=== PATIENT | male | born 1955 | race Caucasian/White ===

== ENCOUNTER 2022-10-02 10:24 | Inpatient (IN) | payer OTHER ==
[~2022-10-02] VITALS: Ht 175.3 cm; Wt 74.5 kg
[2022-10-02 12:03] LABS: EOSINOPHILS % (AUTO) 0.7 % (1.0-6.0); LYMPHOCYTES # (AUTO) 2.3 K/uL (1.0-4.8)
[2022-10-02 12:14] LABS: BASOPHILS % (AUTO) 0.4 % (0.0-2.0); HEMATOCRIT 40.9 % (41-53); LYMPHOCYTES % (AUTO) 13.8 % (22.0-44.0); MEAN CORPUSCULAR HEMOGLOBIN 31.8 pg (26.0-34.0); MEAN CORPUSCULAR HGB CONC 34.3 G/dL (31.0-37.0); MEAN CORPUSCULAR VOLUME 93 fL (80-100); MONOCYTES # (AUTO) 1.2 K/uL (0.1-1.0); MONOCYTES % (AUTO) 7.3 % (2.0-9.0); NEUTROPHILS # (AUTO) 13.1 K/uL (1.8-7.7); NEUTROPHILS % (AUTO) 77.8 % (40.0-70.0); PLATELET COUNT (AUTO) 270 K/uL (150-450); RED BLOOD CELL COUNT(AUTO) 4.41 MIL/uL (4.50-5.90); RED CELL DISTRIBUTION WIDTH 13.1 % (11.5-14.5)
[2022-10-02 12:19] LABS: ANION GAP 16 mmol/L (8-16); CALCIUM, TOTAL 9.2 mg/dL (8.8-10.5); CARBON DIOXIDE 19 mmol/L (22-29); CHLORIDE 97 mmol/L (98-107); CREATININE 1.44 mg/dL (0.60-1.30); GLOMERULAR FILTR. RATE CALC 49 mL/min (>60); GLUCOSE,RANDOM 79 mg/dL (70-110); POTASSIUM 4.1 mmol/L (3.5-5.1); SODIUM SERUM 132 mmol/L (136-145); UREA NITROGEN, BLOOD 39 mg/dL (7-18)
[2022-10-02 12:30] LABS: B-TYPE NATRIURETIC PEPTIDE 21 pg/mL (0-100)
[2022-10-02 12:37] LABS: ALANINE AMINOTRANSFERASE 65 U/L (12-78); ALBUMIN 3.2 g/dL (3.4-5.0); ALKALINE PHOSPHATASE 69 U/L (46-116); ASPARTATE AMINOTRANSFERASE 71 U/L (15-37); BILIRUBIN,TOTAL 0.6 mg/dL (0.1-1.0); TOTAL PROTEIN, SERUM 7.3 g/dL (6.4-8.2)
[2022-10-02 12:39] LABS: CREATINE KINASE, TOTAL ONLY 1372 U/L (39-308)
[2022-10-02] MEDS ORDERED: LORazepam 1 MG TABLET PO ONE (12:45)
[2022-10-02] MEDS ORDERED: SODIUM CHLORIDE 0.9% 1,000 ML IV ONE ×3 (13:00→20:00)
[2022-10-02 13:29] LABS: THYROID STIMULATING HORMONE 1.45 uIU/mL (0.36-3.74)
[2022-10-02 13:45] LABS: COVID AG,FIA SOURCE NASAL SWAB
[2022-10-02 14:10] LABS: INFLUENZA TYPE A NEGATIVE FOR TYPE A (NEGATIVE); INFLUENZA TYPE B NEGATIVE FOR TYPE B (NEGATIVE)
[2022-10-02 14:42] LABS: AMPHET/METH SCREEN,URINE NEGATIVE (NEGATIVE); BARBITURATE SCREEN, URINE NEGATIVE (NEGATIVE); BENZODIAZEPINES SCREEN,URINE NEGATIVE (NEGATIVE); CANNABINOID SCREEN,URINE NEGATIVE (NEGATIVE); COCAINE SCREEN,URINE NEGATIVE (NEGATIVE); METHADONE SCREEN, URINE NEGATIVE (NEGATIVE); OPIATE SCREEN,URINE NEGATIVE (NEGATIVE)
[2022-10-02 14:43] LABS: PHENCYCLIDINE SCREEN,URINE NEGATIVE (NEGATIVE)
[2022-10-02 14:49] LABS: APPEARANCE,URINE CLEAR (CLEAR); BILIRUBIN,URINE NEGATIVE (NEGATIVE); GLUCOSE, URINE (UA) NEGATIVE (NEGATIVE); KETONES,URINE =>150 mg/dL (NEGATIVE); LEUKOCYTE ESTERASE ,URINE NEGATIVE (NEGATIVE); NITRATE,URINE NEGATIVE (NEGATIVE); OCCULT BLOOD,URINE TRACE (NEGATIVE); PH,URINE 5.5 (5.0-8.0); PROTEIN,URINE 30-70 mg/dL (NEGATIVE); SPECIFIC GRAVITIY, URINE 1.032 (1.003-1.030)
[2022-10-02 14:50] LABS: BACTERIA,URINE None Seen /HPF (None Seen); RBC,URINE 0-2 /HPF (0-2); WBC,URINE None Seen /HPF (0-5)
[2022-10-02] MEDS ORDERED: 0.9% SODIUM CHLORIDE 10 ML SYRINGE IVP PRN (15:45)
[2022-10-02] MEDS ORDERED: ONDANSETRON HCL 4 MG/2 ML VIAL IVP PRN ×2 (15:45→20:00)
[2022-10-02] MEDS ORDERED: ACETAMINOPHEN 325 MG TABLET PO PRN (15:45)
[2022-10-02 17:35] VITALS: BP 111/47
[2022-10-02 20:00] VITALS: BP 101/61
[2022-10-02] MEDS ORDERED: MORPHINE SULFATE 2 MG/ML SYRINGE IVP PRN (20:00)
[2022-10-02] MEDS ORDERED: BISACODYL 10 MG RECTAL RECTAL SUPPOSITORY PR PRN (20:00)
[2022-10-02] MEDS ORDERED: HYDROCODONE/ACETAMINOPHEN 5-325 MG TABLET PO PRN (20:00)
[2022-10-02] MEDS ORDERED: MAGNESIUM HYDROXIDE SUSPENSION 30 ML UDCUP PO PRN (20:00)
[2022-10-02] MEDS ORDERED: ZOLPIDEM TARTRATE 5 MG TABLET PO PRN (20:00)
[2022-10-02] MEDS: DOCUSATE SODIUM 100 MG CAPSULE PO SCH (20:14)
[2022-10-03] MEDS: HEPARIN SODIUM,PORCINE 5,000 UNITS/ML VIAL SQ SCH ×4 (00:43→23:18)
[2022-10-03 05:00] VITALS: BP 119/62
[2022-10-03 06:16] LABS: BASOPHILS % (AUTO) 0.6 % (0.0-2.0); EOSINOPHILS % (AUTO) 3.4 % (1.0-6.0); HEMATOCRIT 33.3 % (41-53); HEMOGLOBIN 11.7 g/dL (13.5-17.5); LYMPHOCYTES # (AUTO) 2.5 K/uL (1.0-4.8); LYMPHOCYTES % (AUTO) 26.6 % (22.0-44.0); MEAN CORPUSCULAR HEMOGLOBIN 32.9 pg (26.0-34.0); MEAN CORPUSCULAR HGB CONC 35.3 G/dL (31.0-37.0); MEAN CORPUSCULAR VOLUME 93 fL (80-100); MONOCYTES # (AUTO) 1.1 K/uL (0.1-1.0); MONOCYTES % (AUTO) 11.3 % (2.0-9.0); NEUTROPHILS # (AUTO) 5.6 K/uL (1.8-7.7); NEUTROPHILS % (AUTO) 58.1 % (40.0-70.0); PLATELET COUNT (AUTO) 219 K/uL (150-450); RED BLOOD CELL COUNT(AUTO) 3.57 MIL/uL (4.50-5.90); RED CELL DISTRIBUTION WIDTH 13.7 % (11.5-14.5)
[2022-10-03 06:27] LABS: ANION GAP 7 mmol/L (8-16); CARBON DIOXIDE 24 mmol/L (22-29); CHLORIDE 107 mmol/L (98-107); CREATININE 1.18 mg/dL (0.60-1.30); GLUCOSE,RANDOM 100 mg/dL (70-110); POTASSIUM 3.3 mmol/L (3.5-5.1); SODIUM SERUM 138 mmol/L (136-145); UREA NITROGEN, BLOOD 26 mg/dL (7-18)
[2022-10-03 06:31] LABS: GLOMERULAR FILTR. RATE CALC > 60 mL/min (>60)
[2022-10-03] MEDS ORDERED: POTASSIUM CHLORIDE 20 MEQ ER TABLET PO ONE (08:30)
[2022-10-03 08:36] VITALS: BP 118/70
[2022-10-03] MEDS: PANTOPRAZOLE SODIUM 40 MG DR TABLET PO SCH (08:48)
[2022-10-03] MEDS: DOCUSATE SODIUM 100 MG CAPSULE PO SCH ×2 (08:48→20:30)
[2022-10-03 15:31] VITALS: BP 137/77
[2022-10-04] MEDS: LORazepam 2 MG/ML VIAL IM PRN (03:31)
[2022-10-04 04:32] VITALS: BP 133/79
[2022-10-04 07:23] VITALS: BP 129/75
[2022-10-04] MEDS: RisperiDONE 1 MG TABLET PO SCH ×4 (07:54→21:00)
[2022-10-04] MEDS: HEPARIN SODIUM,PORCINE 5,000 UNITS/ML VIAL SQ SCH ×3 (07:54→23:13)
[2022-10-04] MEDS: PANTOPRAZOLE SODIUM 40 MG DR TABLET PO SCH (07:54)
[2022-10-04] MEDS: DOCUSATE SODIUM 100 MG CAPSULE PO SCH ×3 (07:54→20:11)
[2022-10-04 20:10] VITALS: BP 104/54
[2022-10-05] MEDS: LORazepam 2 MG/ML VIAL IM PRN (02:06)
[2022-10-05 06:43] LABS: BASOPHILS % (AUTO) 0.8 % (0.0-2.0); EOSINOPHILS % (AUTO) 2.4 % (1.0-6.0); HEMOGLOBIN 11.7 g/dL (13.5-17.5); LYMPHOCYTES # (AUTO) 3.1 K/uL (1.0-4.8); LYMPHOCYTES % (AUTO) 27.8 % (22.0-44.0); MEAN CORPUSCULAR HEMOGLOBIN 33.1 pg (26.0-34.0); MEAN CORPUSCULAR HGB CONC 35.5 G/dL (31.0-37.0); MEAN CORPUSCULAR VOLUME 93 fL (80-100); NEUTROPHILS # (AUTO) 6.8 K/uL (1.8-7.7); PLATELET COUNT (AUTO) 200 K/uL (150-450); RED BLOOD CELL COUNT(AUTO) 3.54 MIL/uL (4.50-5.90); RED CELL DISTRIBUTION WIDTH 13.4 % (11.5-14.5)
[2022-10-05 07:25] LABS: ANION GAP 5 mmol/L (8-16); CALCIUM, TOTAL 8.5 mg/dL (8.8-10.5); CARBON DIOXIDE 27 mmol/L (22-29); CHLORIDE 106 mmol/L (98-107); CREATINE KINASE, TOTAL ONLY 410 U/L (39-308); CREATININE 0.94 mg/dL (0.60-1.30); GLOMERULAR FILTR. RATE CALC > 60 mL/min (>60); GLUCOSE,RANDOM 111 mg/dL (70-110); SODIUM SERUM 138 mmol/L (136-145); UREA NITROGEN, BLOOD 23 mg/dL (7-18)
[2022-10-05] MEDS: PANTOPRAZOLE SODIUM 40 MG DR TABLET PO SCH (07:51)
[2022-10-05] MEDS: RisperiDONE 1 MG TABLET PO SCH ×2 (07:52→20:58)
[2022-10-05] MEDS: HEPARIN SODIUM,PORCINE 5,000 UNITS/ML VIAL SQ SCH ×2 (07:52→16:21)
[2022-10-05] MEDS: DOCUSATE SODIUM 100 MG CAPSULE PO SCH ×2 (07:52→20:59)
[2022-10-05] MEDS ORDERED: POTASSIUM CHLORIDE 20 MEQ ER TABLET PO ONE (12:15)
[2022-10-05 17:16] VITALS: BP 111/56
[2022-10-05 20:30] VITALS: BP 118/68
[2022-10-06] MEDS: HEPARIN SODIUM,PORCINE 5,000 UNITS/ML VIAL SQ SCH ×3 (00:05→16:01)
[2022-10-06 04:05] VITALS: BP 114/66
[2022-10-06 07:17] VITALS: BP 114/70
[2022-10-06] MEDS: PANTOPRAZOLE SODIUM 40 MG DR TABLET PO SCH (09:06)
[2022-10-06] MEDS: RisperiDONE 1 MG TABLET PO SCH ×2 (09:06→20:00)
[2022-10-06] MEDS: DOCUSATE SODIUM 100 MG CAPSULE PO SCH ×2 (09:06→19:59)
[2022-10-06 11:59] VITALS: BP 101/62
[2022-10-06 15:18] VITALS: BP 130/87
[2022-10-06 19:57] VITALS: BP 113/63
[2022-10-07] MEDS: HEPARIN SODIUM,PORCINE 5,000 UNITS/ML VIAL SQ SCH ×4 (00:08→23:16)
[2022-10-07 07:31] VITALS: BP 118/64
[2022-10-07] MEDS: PANTOPRAZOLE SODIUM 40 MG DR TABLET PO SCH (08:16)
[2022-10-07] MEDS: RisperiDONE 1 MG TABLET PO SCH ×2 (08:16→20:12)
[2022-10-07] MEDS: DOCUSATE SODIUM 100 MG CAPSULE PO SCH ×2 (08:16→20:12)
[2022-10-07 15:24] VITALS: BP 143/67
[2022-10-07 20:40] VITALS: BP 113/73
[2022-10-08 04:22] VITALS: BP 110/64
[2022-10-08] MEDS: ACETAMINOPHEN 325 MG TABLET PO PRN (04:46)
[2022-10-08 07:18] VITALS: BP 100/65
[2022-10-08] MEDS: PANTOPRAZOLE SODIUM 40 MG DR TABLET PO SCH (08:07)
[2022-10-08] MEDS: DOCUSATE SODIUM 100 MG CAPSULE PO SCH ×2 (08:07→21:57)
[2022-10-08] MEDS: RisperiDONE 1 MG TABLET PO SCH ×2 (08:07→21:57)
[2022-10-08] MEDS: HEPARIN SODIUM,PORCINE 5,000 UNITS/ML VIAL SQ SCH ×3 (08:07→22:57)
[2022-10-08 10:57] LABS: COVID AG,FIA SOURCE NASAL SWAB
[2022-10-08 15:29] VITALS: BP 114/68
[2022-10-08 19:37] VITALS: BP 106/60
[2022-10-09 05:05] VITALS: BP 137/59
[2022-10-09] MEDS: DOCUSATE SODIUM 100 MG CAPSULE PO SCH ×2 (08:00→20:19)
[2022-10-09] MEDS: RisperiDONE 1 MG TABLET PO SCH ×2 (08:01→20:19)
[2022-10-09] MEDS: PANTOPRAZOLE SODIUM 40 MG DR TABLET PO SCH (08:01)
[2022-10-09] MEDS: HEPARIN SODIUM,PORCINE 5,000 UNITS/ML VIAL SQ SCH ×2 (08:01→16:00)
[2022-10-09 08:06] VITALS: BP 105/64
[2022-10-09 16:00] VITALS: BP 117/66
[2022-10-09 20:00] VITALS: BP 125/77
[2022-10-10] MEDS: HEPARIN SODIUM,PORCINE 5,000 UNITS/ML VIAL SQ SCH ×3 (00:09→16:37)
[2022-10-10 05:31] VITALS: BP 112/72
[2022-10-10] MEDS: ACETAMINOPHEN 325 MG TABLET PO PRN (05:37)
[2022-10-10 07:35] VITALS: BP 118/74
[2022-10-10] MEDS: RisperiDONE 1 MG TABLET PO SCH ×2 (08:02→20:09)
[2022-10-10] MEDS: DOCUSATE SODIUM 100 MG CAPSULE PO SCH ×2 (08:02→20:09)
[2022-10-10] MEDS: PANTOPRAZOLE SODIUM 40 MG DR TABLET PO SCH (08:03)
[2022-10-10 15:26] VITALS: BP 124/78
[2022-10-10 19:45] VITALS: BP 113/59
[2022-10-11] MEDS: HEPARIN SODIUM,PORCINE 5,000 UNITS/ML VIAL SQ SCH ×4 (00:02→23:43)
[2022-10-11 05:10] VITALS: BP 105/56
[2022-10-11 06:31] LABS: BASOPHILS % (AUTO) 0.4 % (0.0-2.0); EOSINOPHILS % (AUTO) 0.2 % (1.0-6.0); HEMATOCRIT 33.6 % (41-53); HEMOGLOBIN 11.8 g/dL (13.5-17.5); LYMPHOCYTES # (AUTO) 2.1 K/uL (1.0-4.8); LYMPHOCYTES % (AUTO) 22.4 % (22.0-44.0); MEAN CORPUSCULAR HEMOGLOBIN 32.8 pg (26.0-34.0); MEAN CORPUSCULAR HGB CONC 35.1 G/dL (31.0-37.0); MEAN CORPUSCULAR VOLUME 93 fL (80-100); MONOCYTES % (AUTO) 11.1 % (2.0-9.0); NEUTROPHILS # (AUTO) 6.2 K/uL (1.8-7.7); NEUTROPHILS % (AUTO) 65.9 % (40.0-70.0); PLATELET COUNT (AUTO) 182 K/uL (150-450); RED CELL DISTRIBUTION WIDTH 13.8 % (11.5-14.5)
[2022-10-11 08:00] VITALS: BP 106/59
[2022-10-11] MEDS: RisperiDONE 1 MG TABLET PO SCH ×2 (08:25→20:32)
[2022-10-11] MEDS: DOCUSATE SODIUM 100 MG CAPSULE PO SCH ×2 (08:25→20:32)
[2022-10-11] MEDS: PANTOPRAZOLE SODIUM 40 MG DR TABLET PO SCH (08:25)
[2022-10-11 11:34] LABS: ALBUMIN 2.4 g/dL (3.4-5.0); BILIRUBIN,TOTAL 0.3 mg/dL (0.1-1.0); CALCIUM, TOTAL 8.3 mg/dL (8.8-10.5); CREATININE 1.33 mg/dL (0.60-1.30); POTASSIUM 3.6 mmol/L (3.5-5.1); TOTAL PROTEIN, SERUM 6.4 g/dL (6.4-8.2)
[2022-10-11] MEDS ORDERED: SODIUM CHLORIDE 0.9% 1,000 ML IV ONE (14:15)
[2022-10-11 15:33] VITALS: BP 105/55
[2022-10-11 20:27] VITALS: BP 120/75
[2022-10-11] MEDS: ACETAMINOPHEN 325 MG TABLET PO PRN (20:32)
[2022-10-12 05:56] VITALS: BP 98/57
[2022-10-12 07:32] LABS: ANION GAP 6 mmol/L (8-16); CALCIUM, TOTAL 8.1 mg/dL (8.8-10.5); CARBON DIOXIDE 29 mmol/L (22-29); CHLORIDE 102 mmol/L (98-107); GLUCOSE,RANDOM 106 mg/dL (70-110); UREA NITROGEN, BLOOD 19 mg/dL (7-18)
[2022-10-12 07:44] LABS: GLOMERULAR FILTR. RATE CALC > 60 mL/min (>60); SODIUM SERUM 137 mmol/L (136-145)
[2022-10-12] MEDS: PANTOPRAZOLE SODIUM 40 MG DR TABLET PO SCH (08:21)
[2022-10-12] MEDS: HEPARIN SODIUM,PORCINE 5,000 UNITS/ML VIAL SQ SCH ×3 (08:21→23:57)
[2022-10-12] MEDS: DOCUSATE SODIUM 100 MG CAPSULE PO SCH ×2 (08:21→20:13)
[2022-10-12] MEDS: RisperiDONE 1 MG TABLET PO SCH ×2 (08:21→20:13)
[2022-10-12 08:52] VITALS: BP 103/64
[2022-10-12 16:16] VITALS: BP 124/75
[2022-10-12 20:18] VITALS: BP 103/61
[2022-10-12] MEDS: ACETAMINOPHEN 325 MG TABLET PO PRN (20:27)
[2022-10-13 05:08] VITALS: BP 117/74
[2022-10-13 07:32] VITALS: BP 118/76
[2022-10-13] MEDS: RisperiDONE 1 MG TABLET PO SCH ×2 (08:49→20:01)
[2022-10-13] MEDS: DOCUSATE SODIUM 100 MG CAPSULE PO SCH ×2 (08:49→20:02)
[2022-10-13] MEDS: PANTOPRAZOLE SODIUM 40 MG DR TABLET PO SCH (08:49)
[2022-10-13] MEDS: HEPARIN SODIUM,PORCINE 5,000 UNITS/ML VIAL SQ SCH ×2 (08:50→15:34)
[2022-10-13 13:10] LABS: COVID AG,FIA SOURCE NASAL SWAB
[2022-10-13 15:06] VITALS: BP 124/84
[2022-10-13 20:34] VITALS: BP 111/72
[2022-10-14] MEDS: HEPARIN SODIUM,PORCINE 5,000 UNITS/ML VIAL SQ SCH ×4 (00:05→23:07)
[2022-10-14 04:55] VITALS: BP 110/66
[2022-10-14 07:30] VITALS: BP 116/68
[2022-10-14] MEDS: RisperiDONE 1 MG TABLET PO SCH ×2 (09:00→20:27)
[2022-10-14] MEDS: PANTOPRAZOLE SODIUM 40 MG DR TABLET PO SCH (09:00)
[2022-10-14] MEDS: DOCUSATE SODIUM 100 MG CAPSULE PO SCH ×2 (09:00→20:27)
[2022-10-14 15:13] VITALS: BP 106/60
[2022-10-14 20:12] VITALS: BP 109/66
[2022-10-15 04:29] VITALS: BP 102/65
[2022-10-15 07:17] VITALS: BP 103/65
[2022-10-15] MEDS: PANTOPRAZOLE SODIUM 40 MG DR TABLET PO SCH (08:18)
[2022-10-15] MEDS: RisperiDONE 1 MG TABLET PO SCH ×2 (08:18→20:42)
[2022-10-15] MEDS: HEPARIN SODIUM,PORCINE 5,000 UNITS/ML VIAL SQ SCH ×2 (08:19→17:21)
[2022-10-15] MEDS: DOCUSATE SODIUM 100 MG CAPSULE PO SCH ×2 (08:19→20:42)
[2022-10-15 11:16] LABS: COVID AG,FIA SOURCE NASAL SWAB
[2022-10-15 15:05] VITALS: BP 110/73
[2022-10-15 19:44] VITALS: BP 118/67
[2022-10-16] MEDS: HEPARIN SODIUM,PORCINE 5,000 UNITS/ML VIAL SQ SCH ×3 (00:08→17:30)
[2022-10-16 00:13] VITALS: BP 101/69
[2022-10-16 04:15] VITALS: BP 126/72
[2022-10-16 08:09] VITALS: BP 128/72
[2022-10-16] MEDS: PANTOPRAZOLE SODIUM 40 MG DR TABLET PO SCH (08:17)
[2022-10-16] MEDS: RisperiDONE 1 MG TABLET PO SCH ×2 (08:17→20:28)
[2022-10-16] MEDS: DOCUSATE SODIUM 100 MG CAPSULE PO SCH ×2 (09:08→20:28)
[2022-10-16 15:28] VITALS: BP 115/77
[2022-10-16 20:16] VITALS: BP 113/65
[2022-10-17] MEDS: HEPARIN SODIUM,PORCINE 5,000 UNITS/ML VIAL SQ SCH ×4 (00:22→23:01)
[2022-10-17 04:32] VITALS: BP 122/81
[2022-10-17 07:57] VITALS: BP 124/78
[2022-10-17] MEDS: RisperiDONE 1 MG TABLET PO SCH ×2 (08:23→20:03)
[2022-10-17] MEDS: DOCUSATE SODIUM 100 MG CAPSULE PO SCH ×2 (08:23→20:03)
[2022-10-17] MEDS: PANTOPRAZOLE SODIUM 40 MG DR TABLET PO SCH (08:23)
[2022-10-17 15:22] VITALS: BP 118/68
[2022-10-17 16:17] LABS: COVID AG,FIA SOURCE NASAL SWAB
[2022-10-17 19:32] VITALS: BP 132/73
[2022-10-18 04:22] VITALS: BP 125/73
[2022-10-18] MEDS ORDERED: RISP0.5T39 PO (07:27)
[2022-10-18] MEDS ORDERED: ASPI-1450 PO (07:27)
[2022-10-18] MEDS ORDERED: RISP1TAB48 PO (07:32)
[2022-10-18] MEDS: PANTOPRAZOLE SODIUM 40 MG DR TABLET PO SCH (07:55)
[2022-10-18] MEDS: RisperiDONE 1 MG TABLET PO SCH (07:55)
[2022-10-18] MEDS: DOCUSATE SODIUM 100 MG CAPSULE PO SCH (07:55)
[2022-10-18] MEDS: HEPARIN SODIUM,PORCINE 5,000 UNITS/ML VIAL SQ SCH (07:56)
[2022-10-18 08:01] VITALS: BP 132/88
== END 2022-10-18 14:30 | disposition home or self-care (01) | DRG 91 ==
LOC: EMS 10:33 → 6S 16:53 → 6N 10-08 12:12 → 6S 10-17 17:39
PROVIDERS: ADMIT Internal Medicine; ATTEND Internal Medicine
DX: G92.8 Other toxic encephalopathy (principal); N17.0 Acute kidney failure with tubular necrosis; R65.11 Systemic inflammatory response syndrome (SIRS) of non-infectious origin with acute organ dysfunction; U07.1 COVID-19; M62.82 Rhabdomyolysis; D64.9 Anemia, unspecified; F20.9 Schizophrenia, unspecified; E87.6 Hypokalemia; Z20.822 Contact with and (suspected) exposure to COVID-19; Z60.2 Problems related to living alone; Z91.14 Patient's other noncompliance with medication regimen; Z86.73 Personal history of transient ischemic attack (TIA), and cerebral infarction without residual deficits; Z87.891 Personal history of nicotine dependence; Z79.899 Other long term (current) drug therapy
CPT/HCPCS: 70450; 71045; 80048; 80053; 81001; 82550; 83880; 84132; 84443; 84484; 85025; 87804; 93005; 99285; G0480; J1644; J2060; J7030; 36415-L1; 36415-TC

== ENCOUNTER 2023-05-19 19:33 | Inpatient (IN) | payer MEDICARE, MEDICAID ==
[~2023-05-19] VITALS: Ht 175.3 cm; Wt 71.4 kg
[~2023-05-19 19:33] MED LIST: ASPI-1450 PO; RISP1TAB48 PO
[2023-05-19] MEDS ORDERED: GuaiFENesin/D-METHORPHAN [SUGAR-FREE] 200-20MG/10 ML SYRUP UDCUP PO PRN (21:15)
[2023-05-19] MEDS ORDERED: TUBERCULIN, PURIFIED PROTEIN DERIVATIVE 5 TU/0.1 ML SYRINGE ID ONE (21:15)
[2023-05-19] MEDS ORDERED: MAG HYDROX/AL HYDROX/SIMETH ES 30 ML SUSPENSION UDCUP PO PRN (21:15)
[2023-05-19] MEDS ORDERED: HydrOXYzine PAMOATE 50 MG CAPSULE PO PRN (21:15)
[2023-05-19] MEDS ORDERED: LOPERAMIDE HCL 2 MG CAPSULE PO PRN (21:15)
[2023-05-19] MEDS ORDERED: ACETAMINOPHEN 325 MG TABLET PO PRN (21:15)
[2023-05-19] MEDS ORDERED: OLANZapine 5 MG RAPDIS TABLET PO PRN (21:15)
[2023-05-19] MEDS ORDERED: MAGNESIUM HYDROXIDE SUSPENSION 30 ML UDCUP PO PRN (21:15)
[2023-05-19] MEDS ORDERED: LORazepam 2 MG TABLET PO PRN (21:15)
[2023-05-19] MEDS ORDERED: PROMETHAZINE HCL 25 MG TABLET PO PRN (21:15)
[2023-05-19 23:10] LABS: EOSINOPHILS % (AUTO) 2.1 % (1.0-6.0); HEMATOCRIT 29.8 % (41-53); HEMOGLOBIN 9.6 g/dL (13.5-17.5); LYMPHOCYTES # (AUTO) 2.6 K/uL (1.0-4.8); LYMPHOCYTES % (AUTO) 21.8 % (22.0-44.0); MEAN CORPUSCULAR HEMOGLOBIN 32.4 pg (26.0-34.0); MEAN CORPUSCULAR HGB CONC 32.3 G/dL (31.0-37.0); MEAN CORPUSCULAR VOLUME 100 fL (80-100); MONOCYTES # (AUTO) 1.2 K/uL (0.1-1.0); MONOCYTES % (AUTO) 10.3 % (2.0-9.0); NEUTROPHILS # (AUTO) 7.6 K/uL (1.8-7.7); NEUTROPHILS % (AUTO) 64.8 % (40.0-70.0); PLATELET COUNT (AUTO) 305 K/uL (150-450); RED BLOOD CELL COUNT(AUTO) 2.97 MIL/uL (4.50-5.90); RED CELL DISTRIBUTION WIDTH 14.4 % (11.5-14.5); WHITE BLOOD COUNT (AUTO) 11.8 K/uL (4.5-11.0)
[2023-05-19 23:18] LABS: ANION GAP 9 mmol/L (8-16); CALCIUM, TOTAL 8.5 mg/dL (8.8-10.5); CARBON DIOXIDE 30 mmol/L (22-29); CHLORIDE 104 mmol/L (98-107); CREATININE 0.86 mg/dL (0.60-1.30); GLOMERULAR FILTR. RATE CALC > 60 mL/min (>60); GLUCOSE,RANDOM 105 mg/dL (70-110); POTASSIUM 3.8 mmol/L (3.5-5.1); SODIUM SERUM 143 mmol/L (136-145); UREA NITROGEN, BLOOD 20 mg/dL (7-18)
[2023-05-19 23:25] LABS: ALANINE AMINOTRANSFERASE 13 U/L (12-78); ALBUMIN 2.7 g/dL (3.4-5.0); ALKALINE PHOSPHATASE 82 U/L (46-116); ASPARTATE AMINOTRANSFERASE 16 U/L (15-37); BILIRUBIN,TOTAL 0.2 mg/dL (0.1-1.0); TOTAL PROTEIN, SERUM 6.4 g/dL (6.4-8.2)
[2023-05-19 23:39] LABS: ALCOHOL, BLOOD (SERUM) < 3 mg/dL (0-10)
[2023-05-19] MEDS ORDERED: CEPHALEXIN MONOHYDRATE 500 MG CAPSULE PO ONE (23:45)
[2023-05-19] MEDS ORDERED: SULFAMETHOX/TRIMETH DS 800-160 MG/TABLET PO ONE (23:45)
[2023-05-20] LABS: COVID AG,FIA SOURCE NASOPHARYNGEAL
[2023-05-20 00:26] LABS: SARS-COV2 (COVID) ANTIGEN,FIA Negative (Negative)
[2023-05-20 07:31] LABS: BASOPHILS % (AUTO) 1.1 % (0.0-2.0); EOSINOPHILS % (AUTO) 2.5 % (1.0-6.0); HEMATOCRIT 29.3 % (41-53); HEMOGLOBIN 9.9 g/dL (13.5-17.5); HEMOGLOBIN A1C 4.5 % (3.8-5.6); LYMPHOCYTES # (AUTO) 2.5 K/uL (1.0-4.8); LYMPHOCYTES % (AUTO) 23.8 % (22.0-44.0); MEAN CORPUSCULAR HEMOGLOBIN 33.3 pg (26.0-34.0); MEAN CORPUSCULAR HGB CONC 33.6 G/dL (31.0-37.0); MEAN CORPUSCULAR VOLUME 99 fL (80-100); MONOCYTES # (AUTO) 1.1 K/uL (0.1-1.0); MONOCYTES % (AUTO) 10.1 % (2.0-9.0); NEUTROPHILS # (AUTO) 6.7 K/uL (1.8-7.7); NEUTROPHILS % (AUTO) 62.5 % (40.0-70.0); PLATELET COUNT (AUTO) 289 K/uL (150-450); RED BLOOD CELL COUNT(AUTO) 2.96 MIL/uL (4.50-5.90); WHITE BLOOD COUNT (AUTO) 10.7 K/uL (4.5-11.0)
[2023-05-20 07:42] LABS: ALBUMIN 2.6 g/dL (3.4-5.0); ALKALINE PHOSPHATASE 74 U/L (46-116); ANION GAP 6 mmol/L (8-16); ASPARTATE AMINOTRANSFERASE 19 U/L (15-37); BILIRUBIN,TOTAL 0.3 mg/dL (0.1-1.0); CALCIUM, TOTAL 8.5 mg/dL (8.8-10.5); CARBON DIOXIDE 29 mmol/L (22-29); CHLORIDE 104 mmol/L (98-107); CHOL/HDL RATIO 2.7 (4.2-7.3); CHOLESTEROL 161 mg/dL (131-200); CREATININE 0.85 mg/dL (0.60-1.30); GLOMERULAR FILTR. RATE CALC > 60 mL/min (>60); GLUCOSE,RANDOM 93 mg/dL (70-110); HDL CHOLESTEROL 59 mg/dL (40-60); LDL CHOL (CALC.) 88 mg/dL (0-130); POTASSIUM 3.9 mmol/L (3.5-5.1); SODIUM SERUM 139 mmol/L (136-145); TOTAL PROTEIN, SERUM 6.4 g/dL (6.4-8.2); TRIGLYCERIDES 72 mg/dL (15-150); UREA NITROGEN, BLOOD 14 mg/dL (7-18)
[2023-05-20 07:52] LABS: ALANINE AMINOTRANSFERASE 13 U/L (12-78)
[2023-05-20] MEDS: MULTIVITAMINS WITH MINERALS, THERAPEUTIC TABLET PO SCH (08:37)
[2023-05-20] MEDS: THIAMINE 100 MG TABLET PO SCH ×2 (08:37→22:00)
[2023-05-20] MEDS: OMEGA-3/DHA/EPA/FISH OIL 1,000 MG CAPSULE PO SCH (11:28)
[2023-05-20] MEDS: FOLIC ACID 1 MG TABLET PO SCH (11:28)
[2023-05-20 14:29] LABS: PH,URINE DRUG SCREEN 7.5 (5.0-8.0)
[2023-05-20 14:36] LABS: ALCOHOL, URINE DRUG SCREEN NEGATIVE (NEGATIVE); AMPHET/METH SCREEN,URINE NEGATIVE (NEGATIVE); BARBITURATE SCREEN, URINE NEGATIVE (NEGATIVE); BENZODIAZEPINES SCREEN,URINE POSITIVE (NEGATIVE); CANNABINOID SCREEN,URINE NEGATIVE (NEGATIVE); COCAINE SCREEN,URINE NEGATIVE (NEGATIVE); METHADONE SCREEN, URINE NEGATIVE (NEGATIVE); OPIATE SCREEN,URINE NEGATIVE (NEGATIVE); PHENCYCLIDINE SCREEN,URINE NEGATIVE (NEGATIVE)
[2023-05-20] MEDS: MELATONIN 5 MG TABLET PO SCH (22:00)
[2023-05-20] MEDS: OLANZapine 5 MG RAPDIS TABLET PO SCH (22:00)
[2023-05-21] MEDS: THIAMINE 100 MG TABLET PO SCH (09:00)
[2023-05-21] MEDS: MULTIVITAMINS WITH MINERALS, THERAPEUTIC TABLET PO SCH (18:45)
[2023-05-21] MEDS: OMEGA-3/DHA/EPA/FISH OIL 1,000 MG CAPSULE PO SCH (19:34)
[2023-05-21] MEDS: FOLIC ACID 1 MG TABLET PO SCH (19:34)
[2023-05-21] MEDS: MELATONIN 5 MG TABLET PO SCH (21:00)
[2023-05-21] MEDS: OLANZapine 5 MG RAPDIS TABLET PO SCH (21:00)
[2023-05-22] MEDS: THIAMINE 100 MG TABLET PO SCH ×2 (09:00→16:42)
[2023-05-22] MEDS: MULTIVITAMINS WITH MINERALS, THERAPEUTIC TABLET PO SCH (09:00)
[2023-05-22] MEDS: OMEGA-3/DHA/EPA/FISH OIL 1,000 MG CAPSULE PO SCH (09:00)
[2023-05-22] MEDS: FOLIC ACID 1 MG TABLET PO SCH (09:00)
[2023-05-22 16:49] VITALS: BP 150/70; PULSE 98; RESP 18; TEMP 98; O2SAT 99
[2023-05-22 20:30] VITALS: BP 110/58; PULSE 79; RESP 18; TEMP 98.3
[2023-05-22] MEDS: OLANZapine 5 MG RAPDIS TABLET PO SCH (21:16)
[2023-05-22] MEDS: MELATONIN 5 MG TABLET PO SCH (21:16)
[2023-05-22] MEDS: ZOLPIDEM TARTRATE 10 MG TABLET PO PRN (21:45)
[2023-05-23 08:40] VITALS: BP 114/69; PULSE 70; RESP 18; TEMP 98.1
[2023-05-23] MEDS: MULTIVITAMINS WITH MINERALS, THERAPEUTIC TABLET PO SCH (08:56)
[2023-05-23] MEDS: THIAMINE 100 MG TABLET PO SCH ×2 (08:56→17:15)
[2023-05-23] MEDS: OMEGA-3/DHA/EPA/FISH OIL 1,000 MG CAPSULE PO SCH (08:56)
[2023-05-23] MEDS: FOLIC ACID 1 MG TABLET PO SCH (08:56)
[2023-05-23 20:19] VITALS: BP 116/70; PULSE 78; RESP 20; TEMP 98.2
[2023-05-23] MEDS: MELATONIN 5 MG TABLET PO SCH (20:33)
[2023-05-23] MEDS: DIVALPROEX SODIUM 500 MG ER TABLET PO SCH (20:34)
[2023-05-23] MEDS: OLANZapine 5 MG RAPDIS TABLET PO SCH (20:35)
[2023-05-24 08:47] VITALS: BP 116/63; PULSE 69; RESP 18; TEMP 97.3
[2023-05-24] MEDS: OMEGA-3/DHA/EPA/FISH OIL 1,000 MG CAPSULE PO SCH (09:11)
[2023-05-24] MEDS: THIAMINE 100 MG TABLET PO SCH ×2 (09:12→18:22)
[2023-05-24] MEDS: FOLIC ACID 1 MG TABLET PO SCH (09:12)
[2023-05-24] MEDS: MULTIVITAMINS WITH MINERALS, THERAPEUTIC TABLET PO SCH (09:12)
[2023-05-24 20:17] VITALS: BP 110/63; PULSE 80; RESP 18; TEMP 98.6
[2023-05-24] MEDS: MELATONIN 5 MG TABLET PO SCH (20:44)
[2023-05-24] MEDS: DIVALPROEX SODIUM 500 MG ER TABLET PO SCH (20:44)
[2023-05-24] MEDS: OLANZapine 5 MG RAPDIS TABLET PO SCH (20:45)
[2023-05-25 08:30] VITALS: BP 137/68; PULSE 71; RESP 17; TEMP 98.1
[2023-05-25] MEDS: THIAMINE 100 MG TABLET PO SCH ×2 (09:18→17:31)
[2023-05-25] MEDS: FOLIC ACID 1 MG TABLET PO SCH (09:18)
[2023-05-25] MEDS: OMEGA-3/DHA/EPA/FISH OIL 1,000 MG CAPSULE PO SCH (09:18)
[2023-05-25] MEDS: MULTIVITAMINS WITH MINERALS, THERAPEUTIC TABLET PO SCH (09:19)
[2023-05-25 20:24] VITALS: BP 127/66; PULSE 73; RESP 19; TEMP 98.4
[2023-05-25] MEDS: MELATONIN 5 MG TABLET PO SCH (20:26)
[2023-05-25] MEDS: DIVALPROEX SODIUM 500 MG ER TABLET PO SCH (20:26)
[2023-05-25] MEDS: OLANZapine 5 MG RAPDIS TABLET PO SCH (20:27)
[2023-05-26] MEDS: MULTIVITAMINS WITH MINERALS, THERAPEUTIC TABLET PO SCH (07:51)
[2023-05-26] MEDS: THIAMINE 100 MG TABLET PO SCH ×2 (07:51→17:53)
[2023-05-26] MEDS: FOLIC ACID 1 MG TABLET PO SCH (07:51)
[2023-05-26] MEDS: OMEGA-3/DHA/EPA/FISH OIL 1,000 MG CAPSULE PO SCH (07:51)
[2023-05-26 08:39] VITALS: BP 139/75; PULSE 79; RESP 18; TEMP 97.6
[2023-05-26] MEDS ORDERED: PROPOFOL 1000 MG/ISO-OSM 100 ML ONE (19:57)
[2023-05-26 20:00] VITALS: BP 127/66; PULSE 77; RESP 19; TEMP 98.1
[2023-05-26] MEDS: MELATONIN 5 MG TABLET PO SCH (21:05)
[2023-05-26] MEDS: DIVALPROEX SODIUM 500 MG ER TABLET PO SCH (21:05)
[2023-05-26] MEDS: OLANZapine 10 MG RAPDIS TABLET PO SCH (21:06)
[2023-05-27 09:16] VITALS: BP 131/72; PULSE 65; RESP 18; TEMP 98.1
[2023-05-27] MEDS: THIAMINE 100 MG TABLET PO SCH ×2 (09:51→17:47)
[2023-05-27] MEDS: FOLIC ACID 1 MG TABLET PO SCH (09:51)
[2023-05-27] MEDS: MULTIVITAMINS WITH MINERALS, THERAPEUTIC TABLET PO SCH (09:52)
[2023-05-27] MEDS: OMEGA-3/DHA/EPA/FISH OIL 1,000 MG CAPSULE PO SCH (10:03)
[2023-05-27 20:51] VITALS: BP 128/71; PULSE 72; RESP 18; TEMP 97.1
[2023-05-27] MEDS: OLANZapine 10 MG RAPDIS TABLET PO SCH (21:18)
[2023-05-27] MEDS: DIVALPROEX SODIUM 500 MG ER TABLET PO SCH (21:18)
[2023-05-27] MEDS: MELATONIN 5 MG TABLET PO SCH (21:18)
[2023-05-28] MEDS: OMEGA-3/DHA/EPA/FISH OIL 1,000 MG CAPSULE PO SCH (08:25)
[2023-05-28] MEDS: BuPROPion HCL XL 150 MG ER TABLET PO SCH (08:25)
[2023-05-28] MEDS: FOLIC ACID 1 MG TABLET PO SCH (08:25)
[2023-05-28] MEDS: THIAMINE 100 MG TABLET PO SCH ×2 (08:25→16:55)
[2023-05-28] MEDS: MULTIVITAMINS WITH MINERALS, THERAPEUTIC TABLET PO SCH (08:26)
[2023-05-28 09:39] VITALS: BP 112/69; PULSE 68; RESP 18; TEMP 97
[2023-05-28 20:30] VITALS: BP 120/70; PULSE 80; RESP 17; TEMP 98.6
[2023-05-28] MEDS: OLANZapine 10 MG RAPDIS TABLET PO SCH (21:20)
[2023-05-28] MEDS: DIVALPROEX SODIUM 500 MG ER TABLET PO SCH (21:20)
[2023-05-28] MEDS: MELATONIN 5 MG TABLET PO SCH (21:20)
[2023-05-28] MEDS: ZOLPIDEM TARTRATE 10 MG TABLET PO PRN (21:50)
[2023-05-29] MEDS: THIAMINE 100 MG TABLET PO SCH (08:29)
[2023-05-29] MEDS: OMEGA-3/DHA/EPA/FISH OIL 1,000 MG CAPSULE PO SCH (08:29)
[2023-05-29] MEDS: BuPROPion HCL XL 150 MG ER TABLET PO SCH (08:29)
[2023-05-29] MEDS: MULTIVITAMINS WITH MINERALS, THERAPEUTIC TABLET PO SCH (08:29)
[2023-05-29] MEDS: FOLIC ACID 1 MG TABLET PO SCH (08:29)
[2023-05-29 08:46] VITALS: BP 113/65; PULSE 73; RESP 16; TEMP 97.8
[2023-05-29 08:54] VITALS: BP 113/65; PULSE 73; RESP 16; TEMP 97.8
[2023-05-29] MEDS: DIVALPROEX SODIUM 500 MG ER TABLET PO SCH (20:05)
[2023-05-29] MEDS: MELATONIN 5 MG TABLET PO SCH (20:05)
[2023-05-29] MEDS: OLANZapine 10 MG RAPDIS TABLET PO SCH (20:05)
[2023-05-29 20:20] VITALS: BP 123/74; PULSE 64; RESP 18; TEMP 98.4
[2023-05-29] MEDS: ZOLPIDEM TARTRATE 10 MG TABLET PO PRN (21:14)
[2023-05-30] MEDS: OMEGA-3/DHA/EPA/FISH OIL 1,000 MG CAPSULE PO SCH (08:45)
[2023-05-30] MEDS: MULTIVITAMINS WITH MINERALS, THERAPEUTIC TABLET PO SCH (08:46)
[2023-05-30] MEDS: BuPROPion HCL XL 150 MG ER TABLET PO SCH (08:47)
[2023-05-30 10:23] VITALS: BP 118/71; PULSE 64; RESP 18; TEMP 98.3
[2023-05-30 20:20] VITALS: BP 127/84; PULSE 90; RESP 18; TEMP 97.8
[2023-05-30] MEDS: MELATONIN 5 MG TABLET PO SCH (20:49)
[2023-05-30] MEDS: DIVALPROEX SODIUM 500 MG ER TABLET PO SCH (20:49)
[2023-05-30] MEDS: OLANZapine 10 MG RAPDIS TABLET PO SCH (20:49)
[2023-05-31] MEDS: MULTIVITAMINS WITH MINERALS, THERAPEUTIC TABLET PO SCH (08:30)
[2023-05-31] MEDS: OMEGA-3/DHA/EPA/FISH OIL 1,000 MG CAPSULE PO SCH (08:30)
[2023-05-31] MEDS: BuPROPion HCL XL 150 MG ER TABLET PO SCH (08:30)
[2023-05-31 09:04] VITALS: BP 101/65; PULSE 70; RESP 18; TEMP 97.8
[2023-05-31 20:14] VITALS: BP 117/68; PULSE 75; RESP 18; TEMP 98.4
[2023-05-31] MEDS: MELATONIN 5 MG TABLET PO SCH (21:28)
[2023-05-31] MEDS: DIVALPROEX SODIUM 500 MG ER TABLET PO SCH (21:28)
[2023-05-31] MEDS: OLANZapine 10 MG RAPDIS TABLET PO SCH (21:29)
[2023-06-01] MEDS: OMEGA-3/DHA/EPA/FISH OIL 1,000 MG CAPSULE PO SCH (08:22)
[2023-06-01] MEDS: MULTIVITAMINS WITH MINERALS, THERAPEUTIC TABLET PO SCH (08:22)
[2023-06-01] MEDS: BuPROPion HCL XL 150 MG ER TABLET PO SCH (08:22)
[2023-06-01 09:13] VITALS: BP 125/68; PULSE 73; RESP 17; TEMP 97.5
[2023-06-01 20:21] VITALS: BP 112/67; PULSE 82; RESP 18; TEMP 99.1
[2023-06-01] MEDS: DIVALPROEX SODIUM 500 MG ER TABLET PO SCH (20:56)
[2023-06-01] MEDS: OLANZapine 10 MG RAPDIS TABLET PO SCH (20:56)
[2023-06-01] MEDS: MELATONIN 5 MG TABLET PO SCH (20:56)
[2023-06-02 08:40] VITALS: BP 127/70; PULSE 69; RESP 17; TEMP 97.9
[2023-06-02] MEDS: BuPROPion HCL XL 150 MG ER TABLET PO SCH (09:59)
[2023-06-02] MEDS: MULTIVITAMINS WITH MINERALS, THERAPEUTIC TABLET PO SCH (09:59)
[2023-06-02] MEDS: OMEGA-3/DHA/EPA/FISH OIL 1,000 MG CAPSULE PO SCH (09:59)
[2023-06-02] MEDS: MELATONIN 5 MG TABLET PO SCH (20:55)
[2023-06-02] MEDS: DIVALPROEX SODIUM 500 MG ER TABLET PO SCH (20:55)
[2023-06-02] MEDS: OLANZapine 10 MG RAPDIS TABLET PO SCH (20:55)
[2023-06-02 21:33] VITALS: BP 102/60; PULSE 75; RESP 17; TEMP 98.4
[2023-06-03] MEDS: OMEGA-3/DHA/EPA/FISH OIL 1,000 MG CAPSULE PO SCH (08:23)
[2023-06-03] MEDS: MULTIVITAMINS WITH MINERALS, THERAPEUTIC TABLET PO SCH (08:24)
[2023-06-03] MEDS: BuPROPion HCL XL 150 MG ER TABLET PO SCH (08:24)
[2023-06-03 08:35] VITALS: BP 107/56; PULSE 66; RESP 17; TEMP 97.2
[2023-06-03] MEDS: DIVALPROEX SODIUM 500 MG ER TABLET PO SCH (21:14)
[2023-06-03] MEDS: MELATONIN 5 MG TABLET PO SCH (21:14)
[2023-06-03] MEDS: OLANZapine 10 MG RAPDIS TABLET PO SCH (21:15)
[2023-06-03 21:49] VITALS: BP 120/71; PULSE 76; RESP 18; TEMP 98.5
[2023-06-04 08:10] VITALS: BP 114/74; PULSE 75; RESP 18; TEMP 97.8
[2023-06-04] MEDS: OMEGA-3/DHA/EPA/FISH OIL 1,000 MG CAPSULE PO SCH (08:17)
[2023-06-04] MEDS: MULTIVITAMINS WITH MINERALS, THERAPEUTIC TABLET PO SCH (08:18)
[2023-06-04] MEDS: BuPROPion HCL XL 150 MG ER TABLET PO SCH (08:18)
[2023-06-04 20:01] VITALS: BP 118/78; PULSE 76; RESP 18; TEMP 98.2
[2023-06-04] MEDS: MELATONIN 5 MG TABLET PO SCH (20:48)
[2023-06-04] MEDS: DIVALPROEX SODIUM 500 MG ER TABLET PO SCH (20:48)
[2023-06-04] MEDS: OLANZapine 10 MG RAPDIS TABLET PO SCH (20:49)
[2023-06-05 08:58] VITALS: BP 123/74; PULSE 66; RESP 18; TEMP 97.9
[2023-06-05] MEDS: BuPROPion HCL XL 150 MG ER TABLET PO SCH (09:22)
[2023-06-05] MEDS: OMEGA-3/DHA/EPA/FISH OIL 1,000 MG CAPSULE PO SCH (09:22)
[2023-06-05] MEDS: MULTIVITAMINS WITH MINERALS, THERAPEUTIC TABLET PO SCH (09:22)
[2023-06-05] MEDS: DIVALPROEX SODIUM 500 MG ER TABLET PO SCH (21:09)
[2023-06-05] MEDS: MELATONIN 5 MG TABLET PO SCH (21:09)
[2023-06-05] MEDS: OLANZapine 10 MG RAPDIS TABLET PO SCH (21:09)
[2023-06-05 21:24] VITALS: BP 119/76; PULSE 72; RESP 18; TEMP 97.1
[2023-06-06 09:36] VITALS: BP 114/76; PULSE 70; RESP 18; TEMP 97.7
[2023-06-06] MEDS: BuPROPion HCL XL 150 MG ER TABLET PO SCH (10:29)
[2023-06-06] MEDS: OMEGA-3/DHA/EPA/FISH OIL 1,000 MG CAPSULE PO SCH (10:29)
[2023-06-06] MEDS: MULTIVITAMINS WITH MINERALS, THERAPEUTIC TABLET PO SCH (10:30)
[2023-06-06 20:11] VITALS: BP 113/65; PULSE 75; RESP 19; TEMP 98.1
[2023-06-06] MEDS: MELATONIN 5 MG TABLET PO SCH (20:40)
[2023-06-06] MEDS: OLANZapine 10 MG RAPDIS TABLET PO SCH (20:40)
[2023-06-06] MEDS: DIVALPROEX SODIUM 500 MG ER TABLET PO SCH (20:40)
[2023-06-07] MEDS: OMEGA-3/DHA/EPA/FISH OIL 1,000 MG CAPSULE PO SCH (09:07)
[2023-06-07] MEDS: BuPROPion HCL XL 150 MG ER TABLET PO SCH (09:07)
[2023-06-07] MEDS: MULTIVITAMINS WITH MINERALS, THERAPEUTIC TABLET PO SCH (09:07)
[2023-06-07 09:20] VITALS: BP 122/65; PULSE 72; RESP 16; TEMP 97.6
[2023-06-07 20:17] VITALS: BP 109/63; PULSE 70; RESP 18; TEMP 98.2
[2023-06-07] MEDS: DIVALPROEX SODIUM 500 MG ER TABLET PO SCH (20:30)
[2023-06-07] MEDS: MELATONIN 5 MG TABLET PO SCH (20:30)
[2023-06-07] MEDS: OLANZapine 10 MG RAPDIS TABLET PO SCH (20:30)
[2023-06-07] MEDS: ZOLPIDEM TARTRATE 10 MG TABLET PO PRN (21:27)
[2023-06-08 08:38] VITALS: BP 139/89; PULSE 81; RESP 16; TEMP 98.1
[2023-06-08] MEDS: OMEGA-3/DHA/EPA/FISH OIL 1,000 MG CAPSULE PO SCH (11:31)
[2023-06-08] MEDS: MULTIVITAMINS WITH MINERALS, THERAPEUTIC TABLET PO SCH (11:31)
[2023-06-08] MEDS: BuPROPion HCL XL 150 MG ER TABLET PO SCH (11:31)
[2023-06-08 20:02] VITALS: BP 107/60; PULSE 69; RESP 18; TEMP 98.5
[2023-06-08] MEDS: DIVALPROEX SODIUM 500 MG ER TABLET PO SCH (20:34)
[2023-06-08] MEDS: MELATONIN 5 MG TABLET PO SCH (20:35)
[2023-06-08] MEDS: OLANZapine 10 MG RAPDIS TABLET PO SCH (20:36)
[2023-06-09] MEDS: BuPROPion HCL XL 150 MG ER TABLET PO SCH (08:19)
[2023-06-09] MEDS: MULTIVITAMINS WITH MINERALS, THERAPEUTIC TABLET PO SCH (08:19)
[2023-06-09] MEDS: OMEGA-3/DHA/EPA/FISH OIL 1,000 MG CAPSULE PO SCH (08:19)
[2023-06-09 08:55] VITALS: BP 132/72; PULSE 60; RESP 18; TEMP 97.8
[2023-06-09] MEDS: MELATONIN 5 MG TABLET PO SCH (20:05)
[2023-06-09] MEDS: OLANZapine 10 MG RAPDIS TABLET PO SCH (20:05)
[2023-06-09] MEDS: DIVALPROEX SODIUM 500 MG ER TABLET PO SCH (20:05)
[2023-06-09 20:30] VITALS: BP 118/64; PULSE 71; RESP 19; TEMP 97.8
[2023-06-10] MEDS: OMEGA-3/DHA/EPA/FISH OIL 1,000 MG CAPSULE PO SCH (08:04)
[2023-06-10] MEDS: BuPROPion HCL XL 150 MG ER TABLET PO SCH (08:04)
[2023-06-10] MEDS: MULTIVITAMINS WITH MINERALS, THERAPEUTIC TABLET PO SCH (08:04)
[2023-06-10 08:23] VITALS: BP 118/75; PULSE 70; RESP 18; TEMP 98.5
[2023-06-10] MEDS: MELATONIN 5 MG TABLET PO SCH (20:15)
[2023-06-10] MEDS: OLANZapine 10 MG RAPDIS TABLET PO SCH (20:15)
[2023-06-10] MEDS: DIVALPROEX SODIUM 500 MG ER TABLET PO SCH (20:16)
[2023-06-10 21:48] VITALS: BP 128/71; PULSE 74; RESP 16; TEMP 98.6
[2023-06-11] MEDS: BuPROPion HCL XL 150 MG ER TABLET PO SCH (09:59)
[2023-06-11] MEDS: OMEGA-3/DHA/EPA/FISH OIL 1,000 MG CAPSULE PO SCH (09:59)
[2023-06-11] MEDS: MULTIVITAMINS WITH MINERALS, THERAPEUTIC TABLET PO SCH (10:02)
[2023-06-11 12:51] VITALS: BP 108/71; PULSE 68; RESP 18; TEMP 98.1
[2023-06-11 19:58] VITALS: BP 119/72; PULSE 77; RESP 19; TEMP 98.6
[2023-06-11 20:30] VITALS: BP 119/72; PULSE 77; RESP 19; TEMP 98.6
[2023-06-11] MEDS: DIVALPROEX SODIUM 500 MG ER TABLET PO SCH (21:10)
[2023-06-11] MEDS: MELATONIN 5 MG TABLET PO SCH (21:11)
[2023-06-11] MEDS: OLANZapine 10 MG RAPDIS TABLET PO SCH (21:11)
[2023-06-12 09:17] VITALS: BP 121/63; PULSE 69; RESP 18; TEMP 97.8
[2023-06-12] MEDS: BuPROPion HCL XL 150 MG ER TABLET PO SCH (09:18)
[2023-06-12] MEDS: MULTIVITAMINS WITH MINERALS, THERAPEUTIC TABLET PO SCH (09:18)
[2023-06-12] MEDS: OMEGA-3/DHA/EPA/FISH OIL 1,000 MG CAPSULE PO SCH (09:18)
[2023-06-12 20:12] VITALS: BP 115/69; PULSE 70; RESP 18; TEMP 98.4
[2023-06-12] MEDS: MELATONIN 5 MG TABLET PO SCH (21:31)
[2023-06-12] MEDS: DIVALPROEX SODIUM 500 MG ER TABLET PO SCH (21:31)
[2023-06-12] MEDS: OLANZapine 10 MG RAPDIS TABLET PO SCH (21:32)
[2023-06-13] MEDS: OMEGA-3/DHA/EPA/FISH OIL 1,000 MG CAPSULE PO SCH (08:28)
[2023-06-13] MEDS: BuPROPion HCL XL 150 MG ER TABLET PO SCH (08:28)
[2023-06-13] MEDS: MULTIVITAMINS WITH MINERALS, THERAPEUTIC TABLET PO SCH (08:28)
[2023-06-13] MEDS: MODAFINIL 100 MG TABLET PO SCH (08:28)
[2023-06-13 09:08] LABS: COVID AG,FIA SOURCE NASAL SWAB
[2023-06-13 09:27] VITALS: BP 120/74; PULSE 70; RESP 18; TEMP 97.6
[2023-06-13 10:27] LABS: SARS-COV2 (COVID) ANTIGEN,FIA Negative (Negative)
[2023-06-13] MEDS: MELATONIN 5 MG TABLET PO SCH (20:46)
[2023-06-13] MEDS: OLANZapine 10 MG RAPDIS TABLET PO SCH (20:46)
[2023-06-13] MEDS: DIVALPROEX SODIUM 500 MG ER TABLET PO SCH (20:46)
[2023-06-13 21:41] VITALS: BP 124/73; PULSE 76; RESP 18; TEMP 98.9
[2023-06-14] MEDS: OMEGA-3/DHA/EPA/FISH OIL 1,000 MG CAPSULE PO SCH (08:24)
[2023-06-14] MEDS: BuPROPion HCL XL 150 MG ER TABLET PO SCH (08:25)
[2023-06-14] MEDS: MODAFINIL 100 MG TABLET PO SCH (08:25)
[2023-06-14] MEDS: MULTIVITAMINS WITH MINERALS, THERAPEUTIC TABLET PO SCH (08:25)
[2023-06-14 08:46] VITALS: BP 131/70; PULSE 75; RESP 18; TEMP 97.6
[2023-06-14] MEDS: DIVALPROEX SODIUM 500 MG ER TABLET PO SCH (20:10)
[2023-06-14] MEDS: MELATONIN 5 MG TABLET PO SCH (20:10)
[2023-06-14] MEDS: OLANZapine 10 MG RAPDIS TABLET PO SCH (20:10)
[2023-06-14 22:03] VITALS: BP 115/61; PULSE 72; RESP 16; TEMP 98.3
[2023-06-15 00:03] VITALS: TEMP 98.1
[2023-06-15 04:09] VITALS: TEMP 98
[2023-06-15] MEDS: MODAFINIL 100 MG TABLET PO SCH (08:42)
[2023-06-15] MEDS: OMEGA-3/DHA/EPA/FISH OIL 1,000 MG CAPSULE PO SCH (08:42)
[2023-06-15] MEDS: MULTIVITAMINS WITH MINERALS, THERAPEUTIC TABLET PO SCH (08:42)
[2023-06-15] MEDS: BuPROPion HCL XL 150 MG ER TABLET PO SCH (08:43)
[2023-06-15 09:37] VITALS: BP 112/62; PULSE 68; RESP 16; TEMP 97.9
[2023-06-15 12:45] VITALS: TEMP 98.1
[2023-06-15 16:24] VITALS: TEMP 98.6
[2023-06-15 20:30] VITALS: BP 138/69; PULSE 77; RESP 18; TEMP 98.6
[2023-06-15] MEDS: DIVALPROEX SODIUM 500 MG ER TABLET PO SCH (21:22)
[2023-06-15] MEDS: MELATONIN 5 MG TABLET PO SCH (21:22)
[2023-06-15] MEDS: OLANZapine 10 MG RAPDIS TABLET PO SCH (21:23)
[2023-06-16 08:42] VITALS: BP 115/67; PULSE 67; RESP 17; TEMP 97.1
[2023-06-16] MEDS: OMEGA-3/DHA/EPA/FISH OIL 1,000 MG CAPSULE PO SCH (10:07)
[2023-06-16] MEDS: MODAFINIL 100 MG TABLET PO SCH (10:07)
[2023-06-16] MEDS: MULTIVITAMINS WITH MINERALS, THERAPEUTIC TABLET PO SCH (10:08)
[2023-06-16] MEDS: BuPROPion HCL XL 150 MG ER TABLET PO SCH (10:08)
[2023-06-16 12:44] VITALS: BP 119/71; PULSE 70; RESP 17; TEMP 97.4
[2023-06-16 16:01] VITALS: TEMP 97.4
[2023-06-16 20:48] VITALS: BP 121/77; PULSE 62; RESP 18; TEMP 97.1
[2023-06-16] MEDS: DIVALPROEX SODIUM 500 MG ER TABLET PO SCH (21:34)
[2023-06-16] MEDS: OLANZapine 10 MG RAPDIS TABLET PO SCH (21:34)
[2023-06-16] MEDS: MELATONIN 5 MG TABLET PO SCH (21:34)
[2023-06-17 09:05] VITALS: BP 107/60; PULSE 67; RESP 18; TEMP 97.4
[2023-06-17] MEDS: MULTIVITAMINS WITH MINERALS, THERAPEUTIC TABLET PO SCH (09:22)
[2023-06-17] MEDS: OMEGA-3/DHA/EPA/FISH OIL 1,000 MG CAPSULE PO SCH (09:22)
[2023-06-17] MEDS: BuPROPion HCL XL 150 MG ER TABLET PO SCH (09:23)
[2023-06-17] MEDS: MODAFINIL 100 MG TABLET PO SCH (09:23)
[2023-06-17 12:53] VITALS: BP 118/70; PULSE 68; RESP 17; TEMP 97.2
[2023-06-17 16:43] VITALS: RESP 18; TEMP 97.1
[2023-06-17] MEDS: DIVALPROEX SODIUM 500 MG ER TABLET PO SCH (21:24)
[2023-06-17] MEDS: MELATONIN 5 MG TABLET PO SCH (21:25)
[2023-06-17] MEDS: OLANZapine 10 MG RAPDIS TABLET PO SCH (21:25)
[2023-06-17 22:35] VITALS: BP 108/61; PULSE 74; RESP 18; TEMP 97.7
[2023-06-18] VITALS: RESP 18
[2023-06-18 05:04] VITALS: RESP 18
[2023-06-18] MEDS: OMEGA-3/DHA/EPA/FISH OIL 1,000 MG CAPSULE PO SCH (08:34)
[2023-06-18] MEDS: MODAFINIL 100 MG TABLET PO SCH (08:35)
[2023-06-18] MEDS: MULTIVITAMINS WITH MINERALS, THERAPEUTIC TABLET PO SCH (08:35)
[2023-06-18] MEDS: BuPROPion HCL XL 150 MG ER TABLET PO SCH (08:35)
[2023-06-18 08:58] VITALS: BP 113/69; PULSE 83; RESP 17; TEMP 98.1
[2023-06-18 12:11] VITALS: RESP 18; TEMP 98
[2023-06-18 16:07] VITALS: RESP 17; TEMP 97.8
[2023-06-18 20:12] VITALS: BP 115/60; PULSE 71; RESP 16; TEMP 98.7
[2023-06-18] MEDS: MELATONIN 5 MG TABLET PO SCH (20:57)
[2023-06-18] MEDS: DIVALPROEX SODIUM 500 MG ER TABLET PO SCH (20:57)
[2023-06-18] MEDS: OLANZapine 10 MG RAPDIS TABLET PO SCH (20:58)
[2023-06-19] VITALS (7 sets, daily range): BP systolic 110–117; BP diastolic 60–61; PULSE 69–74; RESP 18; TEMP 97.4–98
[2023-06-19] MEDS ORDERED: MODAFINIL 100 MG TABLET PO SCH (09:00)
[2023-06-19] MEDS: BuPROPion HCL XL 150 MG ER TABLET PO SCH (10:42)
[2023-06-19] MEDS: MULTIVITAMINS WITH MINERALS, THERAPEUTIC TABLET PO SCH (10:42)
[2023-06-19] MEDS: OMEGA-3/DHA/EPA/FISH OIL 1,000 MG CAPSULE PO SCH (10:43)
[2023-06-19] MEDS: MELATONIN 5 MG TABLET PO SCH (20:16)
[2023-06-19] MEDS: OLANZapine 10 MG RAPDIS TABLET PO SCH (20:16)
[2023-06-19] MEDS: DIVALPROEX SODIUM 500 MG ER TABLET PO SCH (20:16)
[2023-06-19] MEDS ORDERED: GABAPENTIN 300 MG CAPSULE PO PRN (21:30)
[2023-06-19] MEDS ORDERED: ESZOPICLONE 3 MG TABLET PO PRN (21:30)
[2023-06-20 01:02] VITALS: RESP 17
[2023-06-20 04:19] VITALS: RESP 18
[2023-06-20 08:06] VITALS: BP 110/70; PULSE 83; RESP 18; TEMP 97.9
[2023-06-20] MEDS: MULTIVITAMINS WITH MINERALS, THERAPEUTIC TABLET PO SCH (10:32)
[2023-06-20] MEDS: MODAFINIL 100 MG TABLET PO SCH (10:32)
[2023-06-20] MEDS: OMEGA-3/DHA/EPA/FISH OIL 1,000 MG CAPSULE PO SCH (10:32)
[2023-06-20] MEDS: BuPROPion HCL XL 150 MG ER TABLET PO SCH (10:33)
[2023-06-20 12:18] VITALS: RESP 17; TEMP 98
[2023-06-20 16:35] VITALS: RESP 17; TEMP 98
[2023-06-20 20:33] VITALS: BP 121/73; PULSE 72; RESP 19; TEMP 98.5
[2023-06-20] MEDS: OLANZapine 10 MG RAPDIS TABLET PO SCH (20:51)
[2023-06-20] MEDS: MELATONIN 5 MG TABLET PO SCH (20:51)
[2023-06-20] MEDS: DIVALPROEX SODIUM 500 MG ER TABLET PO SCH (20:51)
[2023-06-21 00:06] VITALS: RESP 18
[2023-06-21 05:34] VITALS: RESP 18
[2023-06-21] MEDS: OMEGA-3/DHA/EPA/FISH OIL 1,000 MG CAPSULE PO SCH (08:31)
[2023-06-21] MEDS: BuPROPion HCL XL 150 MG ER TABLET PO SCH (08:31)
[2023-06-21] MEDS: MULTIVITAMINS WITH MINERALS, THERAPEUTIC TABLET PO SCH (08:31)
[2023-06-21] MEDS: MODAFINIL 100 MG TABLET PO SCH (08:34)
[2023-06-21 08:44] VITALS: RESP 19
[2023-06-21 14:26] VITALS: RESP 19; TEMP 97.1
[2023-06-21 16:26] VITALS: RESP 18; TEMP 97.8
[2023-06-21] MEDS: DIVALPROEX SODIUM 500 MG ER TABLET PO SCH (20:38)
[2023-06-21] MEDS: MELATONIN 5 MG TABLET PO SCH (20:38)
[2023-06-21] MEDS: OLANZapine 10 MG RAPDIS TABLET PO SCH (20:39)
[2023-06-21 21:43] VITALS: BP_SYST 136; BP_SYST 96; BP_DIAS 60; BP_DIAS 77; PULSE 64; PULSE 73; RESP 16; RESP 17; TEMP 97.3
[2023-06-22 03:49] VITALS: RESP 16
[2023-06-22 06:33] VITALS: RESP 16
[2023-06-22 08:18] VITALS: RESP 17; TEMP 97.6
[2023-06-22] MEDS: MULTIVITAMINS WITH MINERALS, THERAPEUTIC TABLET PO SCH (08:52)
[2023-06-22] MEDS: OMEGA-3/DHA/EPA/FISH OIL 1,000 MG CAPSULE PO SCH (08:52)
[2023-06-22] MEDS: MODAFINIL 100 MG TABLET PO SCH (08:52)
[2023-06-22] MEDS: BuPROPion HCL XL 150 MG ER TABLET PO SCH (08:52)
[2023-06-22 12:06] VITALS: RESP 18; TEMP 97.8
[2023-06-22 16:00] VITALS: RESP 17; TEMP 97.8
[2023-06-22 20:47] VITALS: BP 103/64; PULSE 71; RESP 18; TEMP 98.2
[2023-06-22] MEDS: OLANZapine 10 MG RAPDIS TABLET PO SCH (20:56)
[2023-06-22] MEDS: DIVALPROEX SODIUM 500 MG ER TABLET PO SCH (20:56)
[2023-06-22] MEDS: MELATONIN 5 MG TABLET PO SCH (20:56)
[2023-06-23 01:55] VITALS: RESP 18
[2023-06-23 05:05] VITALS: RESP 16
[2023-06-23 08:28] VITALS: BP 101/62; PULSE 70; RESP 18; TEMP 97.5
[2023-06-23] MEDS: MULTIVITAMINS WITH MINERALS, THERAPEUTIC TABLET PO SCH (08:53)
[2023-06-23] MEDS: OMEGA-3/DHA/EPA/FISH OIL 1,000 MG CAPSULE PO SCH (08:53)
[2023-06-23] MEDS: BuPROPion HCL XL 150 MG ER TABLET PO SCH (08:53)
[2023-06-23] MEDS: MODAFINIL 100 MG TABLET PO SCH (09:42)
[2023-06-23 16:53] VITALS: RESP 19; TEMP 98
[2023-06-23] MEDS: OLANZapine 10 MG RAPDIS TABLET PO SCH (21:17)
[2023-06-23] MEDS: DIVALPROEX SODIUM 500 MG ER TABLET PO SCH (21:17)
[2023-06-23] MEDS: MELATONIN 5 MG TABLET PO SCH (21:17)
[2023-06-23 22:25] VITALS: BP 110/71; PULSE 78; RESP 18; TEMP 97.3
[2023-06-24 04:10] VITALS: PULSE 81; RESP 19; TEMP 97.6
[2023-06-24] MEDS: MULTIVITAMINS WITH MINERALS, THERAPEUTIC TABLET PO SCH (11:38)
[2023-06-24] MEDS: OMEGA-3/DHA/EPA/FISH OIL 1,000 MG CAPSULE PO SCH (11:38)
[2023-06-24] MEDS: BuPROPion HCL XL 150 MG ER TABLET PO SCH (11:38)
[2023-06-24] MEDS: MODAFINIL 100 MG TABLET PO SCH (11:38)
[2023-06-24 13:04] VITALS: TEMP 97.6
[2023-06-24 16:00] VITALS: TEMP 97.8
[2023-06-24 16:04] LABS: COVID AG,FIA SOURCE NASAL SWAB
[2023-06-24 16:23] LABS: SARS-COV2 (COVID) ANTIGEN,FIA Negative (Negative)
[2023-06-24] MEDS: OLANZapine 10 MG RAPDIS TABLET PO SCH (20:53)
[2023-06-24] MEDS: DIVALPROEX SODIUM 500 MG ER TABLET PO SCH (20:53)
[2023-06-24] MEDS: MELATONIN 5 MG TABLET PO SCH (20:53)
[2023-06-24 22:10] VITALS: BP 109/66; PULSE 74; RESP 18; TEMP 97.1
[2023-06-25 02:43] VITALS: RESP 17; TEMP 97.9
[2023-06-25 05:33] VITALS: TEMP 98
[2023-06-25 08:10] VITALS: BP 125/65; PULSE 69; RESP 17; TEMP 98
[2023-06-25] MEDS: OMEGA-3/DHA/EPA/FISH OIL 1,000 MG CAPSULE PO SCH (09:20)
[2023-06-25] MEDS: MULTIVITAMINS WITH MINERALS, THERAPEUTIC TABLET PO SCH (09:20)
[2023-06-25] MEDS: MODAFINIL 100 MG TABLET PO SCH (09:21)
[2023-06-25] MEDS: BuPROPion HCL XL 150 MG ER TABLET PO SCH (09:21)
[2023-06-25 12:09] VITALS: TEMP 97.5
[2023-06-25] MEDS: MELATONIN 5 MG TABLET PO SCH (21:09)
[2023-06-25] MEDS: DIVALPROEX SODIUM 500 MG ER TABLET PO SCH (21:09)
[2023-06-25] MEDS: OLANZapine 10 MG RAPDIS TABLET PO SCH (21:09)
[2023-06-25 22:08] VITALS: BP 105/71; PULSE 74; RESP 18; TEMP 98.1
[2023-06-26 04:55] VITALS: RESP 18
[2023-06-26] MEDS: MODAFINIL 100 MG TABLET PO SCH (09:20)
[2023-06-26] MEDS: BuPROPion HCL XL 150 MG ER TABLET PO SCH (09:20)
[2023-06-26] MEDS: MULTIVITAMINS WITH MINERALS, THERAPEUTIC TABLET PO SCH (09:20)
[2023-06-26] MEDS: OMEGA-3/DHA/EPA/FISH OIL 1,000 MG CAPSULE PO SCH (09:20)
[2023-06-26 09:36] VITALS: BP 115/66; PULSE 67; RESP 18; TEMP 97.5
[2023-06-26 13:29] VITALS: TEMP 98
[2023-06-26 18:20] VITALS: TEMP 97.8
[2023-06-26] MEDS: DIVALPROEX SODIUM 500 MG ER TABLET PO SCH (20:56)
[2023-06-26 20:57] VITALS: BP 96/48; PULSE 71; RESP 16; TEMP 98.2
[2023-06-26] MEDS: OLANZapine 10 MG RAPDIS TABLET PO SCH (20:57)
[2023-06-26] MEDS: MELATONIN 5 MG TABLET PO SCH (20:57)
[2023-06-27 04:05] VITALS: RESP 17
[2023-06-27 08:10] VITALS: BP 98/56; PULSE 67; RESP 18; TEMP 97.7
[2023-06-27] MEDS: MODAFINIL 100 MG TABLET PO SCH (09:19)
[2023-06-27] MEDS: OMEGA-3/DHA/EPA/FISH OIL 1,000 MG CAPSULE PO SCH (09:19)
[2023-06-27] MEDS: BuPROPion HCL XL 150 MG ER TABLET PO SCH (09:36)
[2023-06-27] MEDS: MULTIVITAMINS WITH MINERALS, THERAPEUTIC TABLET PO SCH (09:36)
[2023-06-27 14:30] VITALS: BP 105/68; PULSE 70; RESP 18; TEMP 98
[2023-06-27 16:03] VITALS: RESP 18; TEMP 97.6
[2023-06-27] MEDS: DIVALPROEX SODIUM 500 MG ER TABLET PO SCH (20:56)
[2023-06-27] MEDS: MELATONIN 5 MG TABLET PO SCH (20:56)
[2023-06-27] MEDS: OLANZapine 10 MG RAPDIS TABLET PO SCH (20:56)
[2023-06-27 21:35] VITALS: BP 109/63; PULSE 69; RESP 18; TEMP 98.8
[2023-06-27 21:40] VITALS: BP 109/63; PULSE 69; RESP 18; TEMP 98.8
[2023-06-28 04:05] VITALS: RESP 18
[2023-06-28 09:00] VITALS: BP 107/58; PULSE 70; RESP 18; TEMP 97.7
[2023-06-28] MEDS: MODAFINIL 100 MG TABLET PO SCH (09:36)
[2023-06-28] MEDS: OMEGA-3/DHA/EPA/FISH OIL 1,000 MG CAPSULE PO SCH (09:36)
[2023-06-28] MEDS: MULTIVITAMINS WITH MINERALS, THERAPEUTIC TABLET PO SCH (09:36)
[2023-06-28] MEDS: BuPROPion HCL XL 150 MG ER TABLET PO SCH (09:37)
[2023-06-28 12:26] VITALS: TEMP 97.9
[2023-06-28 16:07] VITALS: TEMP 97.2
[2023-06-28] MEDS: DIVALPROEX SODIUM 500 MG ER TABLET PO SCH (20:45)
[2023-06-28] MEDS: MELATONIN 5 MG TABLET PO SCH (20:45)
[2023-06-28] MEDS: OLANZapine 10 MG RAPDIS TABLET PO SCH (20:45)
[2023-06-28] MEDS: CEPHALEXIN MONOHYDRATE 500 MG CAPSULE PO SCH (20:45)
[2023-06-28 21:25] VITALS: BP 112/64; TEMP 98.2
[2023-06-29 03:38] VITALS: RESP 19; TEMP 97.2
[2023-06-29 05:57] VITALS: TEMP 97.8
[2023-06-29 08:15] VITALS: BP 134/63; RESP 18; TEMP 97
[2023-06-29] MEDS: OMEGA-3/DHA/EPA/FISH OIL 1,000 MG CAPSULE PO SCH (09:00)
[2023-06-29] MEDS: BuPROPion HCL XL 150 MG ER TABLET PO SCH (09:00)
[2023-06-29] MEDS: MULTIVITAMINS WITH MINERALS, THERAPEUTIC TABLET PO SCH (09:00)
[2023-06-29] MEDS: CEPHALEXIN MONOHYDRATE 500 MG CAPSULE PO SCH ×4 (09:00→20:16)
[2023-06-29] MEDS: MODAFINIL 100 MG TABLET PO SCH (12:05)
[2023-06-29 12:30] VITALS: TEMP 97.8
[2023-06-29 16:07] VITALS: TEMP 97.6
[2023-06-29] MEDS: DIVALPROEX SODIUM 500 MG ER TABLET PO SCH (20:16)
[2023-06-29] MEDS: MELATONIN 5 MG TABLET PO SCH (20:16)
[2023-06-29] MEDS: OLANZapine 10 MG RAPDIS TABLET PO SCH (20:16)
[2023-06-29 20:44] VITALS: BP 124/71; PULSE 79; RESP 18; TEMP 97.5
[2023-06-30 04:43] VITALS: RESP 18
[2023-06-30] MEDS: BuPROPion HCL XL 150 MG ER TABLET PO SCH (08:09)
[2023-06-30] MEDS: CEPHALEXIN MONOHYDRATE 500 MG CAPSULE PO SCH ×2 (08:09→13:51)
[2023-06-30] MEDS: OMEGA-3/DHA/EPA/FISH OIL 1,000 MG CAPSULE PO SCH (08:09)
[2023-06-30] MEDS: MODAFINIL 100 MG TABLET PO SCH (08:10)
[2023-06-30] MEDS: MULTIVITAMINS WITH MINERALS, THERAPEUTIC TABLET PO SCH (08:11)
[2023-06-30 09:40] VITALS: BP 113/61; PULSE 69; RESP 18; TEMP 97.6
[2023-06-30 11:56] LABS: COVID AG,FIA SOURCE NASAL SWAB
[2023-06-30 12:16] LABS: SARS-COV2 (COVID) ANTIGEN,FIA Negative (Negative)
[2023-06-30] MEDS ORDERED: MODA100T65 PO (13:55)
[2023-06-30] MEDS ORDERED: OLAN10TA26 PO (13:55)
[2023-06-30] MEDS ORDERED: OMEG-135 PO (13:55)
[2023-06-30] MEDS ORDERED: MELA5TAB40 PO (13:55)
[2023-06-30] MEDS ORDERED: BUPR-49 PO (13:55)
[2023-06-30] MEDS ORDERED: DIVA500T69 PO (13:55)
[2023-06-30] MEDS ORDERED: CEPH-558 PO (14:11)
== END 2023-06-30 14:25 | disposition home or self-care (01) | DRG 885 ==
LOC: EMS 19:34 → 3EI 05-21 18:26 → UNDOADMIN 05-21 18:26 → 3EI 05-22 15:28
PROVIDERS: ADMIT Psychiatry & Neurology Psychiatry; ATTEND Psychiatry & Neurology Psychiatry
DX: F20.0 Paranoid schizophrenia (principal); N18.9 Chronic kidney disease, unspecified; D64.9 Anemia, unspecified; S41.102A Unspecified open wound of left upper arm, initial encounter; Z20.822 Contact with and (suspected) exposure to COVID-19; X58.XXXA Exposure to other specified factors, initial encounter; Z86.16 Personal history of COVID-19; Z91.199 Patient's noncompliance with other medical treatment and regimen due to unspecified reason; Z79.82 Long term (current) use of aspirin; Z79.899 Other long term (current) drug therapy; Y93.89 Activity, other specified; Y92.89 Other specified places as the place of occurrence of the external cause; Y99.8 Other external cause status
CPT/HCPCS: 80053; 80061; 80164; 80307; 83036; 84439; 84443; 85025; 86592; 87081; 99285; G0480; J2704; Q9967

== ENCOUNTER 2023-07-04 15:02 | Emergency (ER) | payer OTHER ==
[~2023-07-04] VITALS: Ht 175.3 cm; Wt 77.3 kg
[~2023-07-04 15:02] MED LIST changes: -ASPI-1450 PO; +BUPR-49 PO; +CEPH-558 PO; +DIVA500T69 PO; +MELA5TAB40 PO; +MODA100T65 PO; +OLAN10TA26 PO; +OMEG-135 PO; -RISP1TAB48 PO
[2023-07-04 15:09] VITALS: TEMP 98.3
[2023-07-04 17:30] VITALS: BP 115/67; PULSE 79; RESP 17
== END 2023-07-04 20:00 | disposition home or self-care (01) ==
LOC: EMS 15:03
DX: F20.9 Schizophrenia, unspecified (principal); Z59.00 Homelessness unspecified
CPT/HCPCS: 93005; 99284; Z7502